=== PATIENT | female | born 1935 | race African-American/Black ===

== ENCOUNTER 2017-10-31 10:51 | Emergency (ER) | payer MEDICARE ==
[~2017-10-31] VITALS: Ht 162.6 cm; Wt 80.0 kg
[2017-10-31 10:53] VITALS: BP 211/100; PULSE 78; RESP 16; TEMP 98.1; O2SAT 98
--- NOTE | 2017-10-31 11:28 | PD ---
HPI Chief Complaint: Wound/Suture/Staple Re-Check Time Seen by Provider: 11:11 Travel History International Travel<30 days: No Contact w/Intl Traveler<30days: No Traveled to known affect area: No History of Present Illness HPI This is a 81-year-old female here for suture removal. 6 days ago she had a mechanical slip and fall where she fell to the ground injuring her nose. She sustained a laceration which was repaired at that time. She denies fever, headache, visual changes, epistaxis or any complaints. Her blood pressure was noted to be elevated in triage. She has a history of hypertension and takes losartan hydrochlorothiazide which she did not take this morning. PFSH Past Medical History Narrative Medical Hypertension ?: Not Social History Alcohol Use: No Tobacco Use: No Substance Use: No Allergies-Medications (Allergen,Severity, Reaction): Coded Allergies: No Known Allergies (Unverified , 10/31/17) Review of Systems Except as stated in HPI: all other systems reviewed are Neg General / Constitutional: No: Fever Eyes: No: Visual changes HENT: No: Headaches Physical Exam Narrative GENERAL: Alert and well-appearing 81-year-old female SKIN: Warm and dry. Well-healed laceration to the bridge of the nose. No evidence of infection. HEAD: Normocephalic. EYES: No injection or drainage. NECK: Supple, trachea midline. CARDIOVASCULAR: Regular rate and rhythm RESPIRATORY: Breath sounds equal bilaterally. No accessory muscle use. Data Data Last Documented VS Vital Signs Date Time Temp Pulse Resp B/P (MAP) Pulse Ox O2 Delivery O2 Flow Rate FiO2 10/31/17 10:53 98.1 78 16 211/100 (137) 98 MDM Medical Decision Making Medical Screen Exam Complete: Yes Emergency Medical Condition: Yes Differential Diagnosis Laceration repair, wound infection, hypertension Narrative Course 81-year-old female here for a suture removal. Her blood pressure was noted to be elevated. She takes losartan hydrochlorothiazide. She did not take her medications this morning. She denies any headache, visual changes, chest pain. She has a medication with her and reports she likes to take her blood pressure medication at lunch when she is discharged. Diagnosis Primary Impression: Visit for suture removal Referrals: Primary Care Physician Additional Instructions: Apply antibiotic ointment to the area twice daily into the area is healed. Take her blood pressure medication as prescribed. Disposition: 01 DISCHARGE HOME Condition: Stable Ev Sebastian Oct 31, 2017 11:28
== END 2017-10-31 11:47 | disposition home or self-care (01) ==
LOC: NEPD 10:51
DX: S01.21XD Laceration without foreign body of nose, subsequent encounter (principal); W01.0XXD Fall on same level from slipping, tripping and stumbling without subsequent striking against object, subsequent encounter; Z48.02 Encounter for removal of sutures
CPT/HCPCS: 99281